=== PATIENT | female | born 1950 | race Caucasian/White ===

== ENCOUNTER → 2018-03-01 | Outpatient (CLI) | payer MEDICARE ==
[~2018-03-01] MED LIST: CALGLU500 PO; ERGO400 PO; Hair, Skin & N1 EACH PO; KELP
== END | disposition home or self-care (01) ==
LOC: PLD 15:52 → LAB SHORT 15:52
DX: D48.5 Neoplasm of uncertain behavior of skin (principal)
CPT/HCPCS: 88305